=== PATIENT | female | born 1980 | race Caucasian/White ===

== ENCOUNTER 2023-06-03 13:52 | Outpatient (CLI) | payer OTHER, SELFPAY | END 2023-06-03 13:53 | disposition home or self-care (01) | PROVIDERS: PCP Obstetrics & Gynecology; Visit Provider Obstetrics & Gynecology | DX: N95.1 Menopausal and female climacteric states (principal); Z11.1 Encounter for screening for respiratory tuberculosis | CPT/HCPCS: 82670; 83001; 86480 ==

== ENCOUNTER 2023-07-01 10:04 | Outpatient (CLI) | payer OTHER, SELFPAY | END 2023-07-01 10:05 | disposition home or self-care (01) | PROVIDERS: PCP Obstetrics & Gynecology; Visit Provider Family Medicine | DX: Z00.00 Encounter for general adult medical examination without abnormal findings (principal); F90.9 Attention-deficit hyperactivity disorder, unspecified type; Z13.6 Encounter for screening for cardiovascular disorders | CPT/HCPCS: 80053; 80061 ==

== ENCOUNTER 2024-09-27 07:29 | Outpatient (CLI) | payer OTHER, SELFPAY ==
--- OUTSIDE RECORDS SUMMARY | 2024-09-27 07:36 | XMS_ITS | Clinical Summary ---
Author Organization [facility] Address [address] [place] [address] Care Team Providers Care Motor And Generator Brush Cutter Name Role Phone Bhavik Ferrara MD Primary Care Provider [phone] Isadora Meeks MD Unavailable [phone] Allergies Active Allergy Reactions Criticality Noted Date Comments Sulfamethoxazole-Trimeth oprim Other High 08/08/2015 Skin falls off per Pt Dry peeling skin, generalized not feeling well Medications Medication Sig Dispensed Refills Start Date End Date Status ALPRAZolam (XANAX) 0.25 mg oral tablet TAKE 1 TABLET BY MOUTH AT ONSET OF MIGRAINE ALONG WITH MIGRAINE MEDICATION 6 tablet 05/12/2022 Active ALPRAZolam (XANAX) 0.25 mg oral tablet TAKE 1 TABLET BY MOUTH NEEDED 6 tablet 1 07/28/2023 Active cycloSPORINE (RESTASIS MULTIDOSE) 0.05 % Opht Drop 1 drop every 12 (twelve) hours. 11/20/2022 Active dextroamphetamine-a mphetamine (ADDERALL XR) 10 mg oral extended release capsule 24 HR Take 1 capsule (10 mg) by mouth every morning. 07/06/2023 Active estradioL (VIVELLE-DOT) 0.0375 mg/24 hr TD SEMIweekly patch APPLY 1 PATCH FOR 3 DAYS ALTERNATING WITH 1 PATCH FOR 4 DAYS EACH WEEK FOR 3 WEEKS PER 4 WEEK CYCLE 06/13/2023 Active etonogestreL-ethiny l estradioL (NUVRARING) 0.12-0.015 mg/24 hr Vagl Insert vaginally once per month. 08/27/2022 Active predniSONE (DELTASONE) 10 mg oral tablet 40 mg by mouth every morning with breakfast for 5 days, , then 20 mg every morning for 3 days, then 10 mg every morning x 2 days and stop. 28 tablet 08/14/2023 Active amoxicillin-pot clavulanate (AUGMENTIN) 875-125 mg oral tablet Take 1 tablet by mouth twice a day. 20 tablet 08/14/2023 Active rimegepant (NURTEC ODT) 75 mg oral TbDL Dissolve 1 tablet in mouth as needed. 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 08/27/2022 Overview (07/29/2023): For endometriosis Migraine without aura, intra ctable, without status migrainosus 02/19/2019 Tension-type headache, unspecified, not intracta ble 02/19/2019 Dysmenorrhea 05/04/2012 Anxiety state 04/09/2010 Migraine headache 04/09/2010 Moderate dysplasia of cervix 09/21/2007 Endometriosis 07/07/2006 Immunizations Name Administration Dates Next Due Influenza recombinant (FluBl ok Quadrivalent PF) 08/03/2021,08/27/2020,08/21/2020,2018,11/01/2018,10/28/2017,08/22/2014 Social History Tobacco Use Types Packs/Day Years Used Date Smoking Tobacco: Never Smokeless Tobacco: Never Tobacco Cessation:Counseling Given: No Sex and Gender Information Value Date Recorded Sex Assigned at Not on file Gender Identity Not on file Sexual Orientation Not on file Plan of Treatment Health Maintenance Due Date Last Done Comments Hepatitis C Screening 1982 Lipid Screening 1982 Pap Smear 1982 Anxiety Follow-Up (THERESE-7) 1983 Depression Assessment (PHQ-2) 1983 Mammogram Screening 12/24/2022 12/24/2020 Adult Tetanus Booster 05/06/2023 05/06/2013 , 04/09/2010, 03/25/1997, Additional history exists COVID-19 Vaccine ( season) 2024 02/20/2021, 01/31/2021 Influenza Vaccine (#1) 2024 , 08/27/2020, 08/21/2020, Additional history exists RSV Vaccines (1 - 1-dose 75+ series) 2057 Pneumococcal <65 Aged Out No longer e ligible based on patient's age to complete this topic Insurance Payer Benefit Plan / Group Subscriber ID Effect mansoor Dates Phone Address Type [facility] [facility] [id number] 05/23/2021-Leif nt [address] [place] [phone] PPO Care Teams Motor And Generator Brush Cutter Relationship Specialty Start Date End Date Bhavik Ferrara MD [address] [facility] [address] [place] [address] PCP - General Rheumatology 12/18/21 Isadora Meeks MD [address] [facility] [address] [place] [id number] Neurology 12/18/21
--- OUTSIDE RECORDS SUMMARY | 2024-09-27 07:36 | XMS_ITS | Referral Summary ---
Author Organization [facility] Address [address] [place] [address] Care Team Providers Care Lipcoat Sprayer Name Role Phone Bhavik Ferrara MD Primary Care Provider [phone] Isadora Meeks MD Unavailable [phone] Allergies Active Allergy Reactions Criticality Noted [...] Orientation Not on file Plan of Treatment Not on file Insurance Payer Benefit Plan / Group Subscriber ID Effect mansoor Dates Phone Address Type [employer] [facility] [employer] Card [id number] 05/23/2021-Prese nt [address] [place] [phone] PPO Care Teams Lipcoat Sprayer Relationship Specialty Start Date End Date Bhavik Ferrara MD [address] [facility] [place] [address] PCP - General Rheumatology 12/18/21 Isadora Meeks MD [address] [facility] [address] [place] [address] Neurology 12/18/21
--- OUTSIDE RECORDS SUMMARY | 2024-09-27 07:37 | XMS_ITS | Clinical Summary ---
[facility] Address [address] [place] [address] Care Team Providers Care Certified Alcohol And Drug Counselor Name Role Phone Gracie Colón MD Primary Care Provider [phone] Source Comments You are receiving this document as you are listed as the primary care provider,follow-up provider, or the patient has been referred to you for consultation.This is in compliance with the Medicare andOhio[facility] Hospitalcaid EHR Incentive Program,which states Providers who transition their patient to another setting of careor provider of care or refers their patient to another provider of care shouldprovide summary care record for each transition of care or referral. [employer] Allergies Active Allergy Reactions Criticality Noted Date Comments Hydrocodone-Acetaminop hen Nausea 05/11/2007 Ondansetron Itching Medium 06/23/2012 Sulfamethoxazole-Trime thoprim Other, see comments High 08/08/2015 Skin falls off per Pt Dry peeling skin, generalized not feeling well Medications Medication Sig Dispensed Refills Start Date End Date Status NAPROXEN (NAPROSYN) 250MG ORAL TABS 0 05/03/2004 Active ALPRAZolam (XANAX) 0.25 MG tablet TK 1 T PO ALONG WITH MIGRAINE MEDICATION AT THE ONSET OF A MIGRAINE 08/03/2020 Active NURTEC 75 MG TBDP 03/19/2021 Active MAGNESIUM OR Take 1,600 mg by mouth daily at bedtime. Active etonogestrel-ethinyl estradiol (NUVARING) 0.12-0.015 MG/24HR vaginal ring Insert vaginally once per month. 12 Each 3 08/27/2022 Active RESTASIS MULTIDOSE 0.05 % eye drop emulsion 1 Drop every 12 hours. 11/20/2022 Active TRI-CHRIS 0.01-4-0.05 % cream Apply topically daily at bedtime. 10/14/2022 Active spironolactone (ALDACTONE) 50 MG tablet Take 1 Tablet (50 mg) by mouth two times a day. 10/11/2022 Active tretinoin (RETIN-A) 0.025 % cream Apply topically. 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 08/27/2022 Overview (08/27/2022): For endometriosis Immunizations Name Administration Dates Next Due 4vHPV (Gardasil) 07/12/2008,04/14/2008, 8 Flu Vac (3+ yrs) 08/08/2013, 3,09/21/2007, 005,10/03/1999,10/25/1997,10/07/1995 HepA Ped/Adol (1-18 yrs) 05/22/1998,05/24/1997,0 04/24/1997 HepB Ped/Adol (0-18 yrs) 02/03/1997,09/07/1996,0 06/20/1996 Influenza (Flucelvax), Prese rv Free QIV 10/20/2023,09/23/2022 Influenza IIV4 (Quadrivalent ) 0.5mL ([id number]) 08/03/2021,08/21/2020,09/12/2019, 018,10/28/2017,08/22/2014 MMR 03/04/1995,09/04/1983 Pfizer Monovalent 12+ Purple Top 02/20/2021,01/21 TB Test - Historical 11/27/2016,07/25/20 14,08/08/2013, 006 Td 03/25/1997,01/23/1997 Tdap 05/28/2023,05/06/2013,04/09/2010 Family History Medical History Relation Name Comments Cancer Father non hodgkins ly mphoma Cancer, Other Father Coronary Artery Disease Father Diabetes Father Diabetes, Type II Father Coronary Artery Disease Mother Diabetes Mother Diabetes, Type II Mother Hypertension Mother Cancer, Breast Negative Family History Cancer, Colon Negative Family History Cancer, Ovary Negative Family History Stroke Negative Family History Relation Name Status Comments Father Alive bladder cancer Mother Alive Brother 1 Brother 2 Alive Brother 3 Alive Brother 4 Alive Social History Tobacco Use Types Packs/Day Years Used Date Smoking Tobacco: Former Smokeless Tobacco: Never Alcohol Use Standard Drinks/Week Comments Yes 3 (1 standard drink = 0.6 oz pur e alcohol) very limited PHQ-2 Answer Date Recorded PHQ-2 Score 0 11/13/2022 Sex and Gender Information Value Date Recorded Sex Assigned at Not on file Gender Identity Not on file Sexual Orientation Not on file Last Filed Vital Signs Vital Sign Reading Time Taken Comments Blood Pressure 119/76 10/20/2023 8:21 AM CIRCULAR SAW OPERATOR Pulse 70 10/20/2023 8:21 AM CIRCULAR SAW OPERATOR Temperature 36.3 ??C (97.4 ??F) 10/20/2023 8:21 AM CS T Respiratory Rate 16 10/20/2023 8:21 AM CIRCULAR SAW OPERATOR Oxygen Saturation 98% 01/01/2023 3:21 PM CIRCULAR SAW OPERATOR Inhaled Oxygen Concentration - - Weight 65.4 kg (144 lb 3.2 oz) 10/20/2023 8:21 A M CIRCULAR SAW OPERATOR Height 161 cm (5' 3.39) 10/20/2023 8:21 AM CIRCULAR SAW OPERATOR Body Mass Index 25.23 10/20/2023 8:21 AM CIRCULAR SAW OPERATOR Plan of Treatment Health Maintenance Due Date Last Done Comments Hep C Screening (Preventive Services) 1982 HIV Screening (Preventive Services) 1998 Mammogram 12/24/2021 12/24/2020 Cervical Cancer Screening 07/10/20242020, 04/09/2016 (Completed) COVID-19 Vaccine ( season) 2024 02/20/2021, 01/31/2021 Influenza (#1) 2024 10/20/2023, 1111/2021, 08/03/2021, Additional history exists Adult Preventive Visit 08/27/2024 08/27/2022, 2019 Diabetes Screening- (based on age and BMI) 10/20/2026 10/20/2023, 07/10/2021, 12/27/2020 Zoster/Shingles (1 of 2) 2032 Colonoscopy 08/27/2032 08/27/2022 DTaP/Tdap/Td (6 - Tdap) 05/28/2033 05/28/20 23, 05/06/2013, 04/09/2010, Additional history exists HepB Completed 02/03/1997, 08/23, 06/20/1996 HepA Completed 05/22/1998, 12/1996, 04/24/1997 HPV Vaccine Completed 07/12/2008, 03/24, 01/20/2008 Hib Aged Out No longer eligi ble based on patient's age to complete this topic IPV (Polio) Aged Out No longer eligi ble based on patient's age to complete this topic Infant RSV Aged Out No longer eligi ble based on patient's age to complete this topic MCV4 Aged Out No longer eligi ble based on patient's age to complete this topic Pneumococcal Aged Out No longer eligi ble based on patient's age to complete this topic Procedures Procedure Name Priority Date/Time Associated Diagnosis Comments COLONOSCOPY Routine 08/27/2022 2:24 PM CDT Screen for colon cancer HGB A1C Routine 07/10/2021 9:04 AM CDT Screening for endocrine, nutritional, metabolic and immunity disorder PAP TEST Routine 07/10/2021 8:52 AM CDT Screening for vaginal cancer MM MAMMOGRAM DIAG BILAT W 3D SREEDHAR Routine 12/24/2020 2:45 PM CIRCULAR SAW OPERATOR Breast lump from Last 3 Months or Most Recently Relevant to Health Maintenance Results * COLONOSCOPY [[id number]] (08/27/2022 2:24 PM CDT) 08/27/2022 2:24 PM CDT Narrative GI ([facility]) - 08/27/2022 3:02 PM CDT Instrument Name: 188 Indications: ? Abdominal pain, Patient has a history of increased ? constipation, bloating. Multiple prior abdominal ? surgeries foe endometriosis. Father with polyps. Providers: ? Esperanza High MD, Kalie Ordaz ? Tammi Cooley LPN Patient Profile: ? The bowel preparation used was Golytely Bowel Prep. Referring MD: ?Juliet Kong NP Medicines: ? Propofol per Anesthesia Complications: ? No immediate complications. Procedure: ? Pre-Anesthesia Assessment: ? - The risks and benefits of the procedure and the ? sedation options and risks were discussed with the ? patient. All questions were answered and informed ? consent was obtained. ? - Pre-procedure physical examination revealed no ? contraindications to sedation. ? - Airway Examination: normal oropharyngeal airway ? and neck mobility. ? - Mental Status Examination: normal. Airway ? Examination: normal oropharyngeal airway and neck ? mobility. Respiratory Examination: clear to ? auscultation. CV Examination: normal. Abdominal ? Examination: bowel sounds present, abdomen soft and ? non-tender, no masses or organomegaly noted. ? - ASA Grade Assessment: Per Anesthesia team. ? After I obtained informed consent, the scope was ? passed under direct vision. Prior to sedation, ? patient identity and procedure was reverified. ? Throughout the procedure, the patient's blood ? pressure, pulse, and oxygen saturations were ? monitored continuously. The [facility]-H190L was ? introduced through the anus and advanced to the ? terminal ileum. The colonoscopy was performed ? without difficulty. The patient tolerated the ? procedure well. The quality of the bowel ? preparation was good. Findings: ? The terminal ileum appeared normal. ? Internal hemorrhoids were found during retroflexion. The hemorrhoids ? were mild. ? The exam was otherwise without abnormality. Impression: ?- The examined portion of the ileum was normal. ? - Internal hemorrhoids. ? - The examination was otherwise normal. ? - No specimens collected. Recommendation: ?- Use fiber, for example Citrucel, Fibercon, Konsyl ? or Metamucil. ? - Return to referring physician as previously ? scheduled. ? - Repeat colonoscopy in 10 years for screening ? purposes. Procedure Code(s): ? --- Professional --- ? 53068, Colonoscopy, flexible; diagnostic, including ? collection of specimen(s) by brushing or washing, ? when performed (separate procedure) Diagnosis Code(s): ? --- Professional --- ? K64.8, Other hemorrhoids ? R10.9, Unspecified abdominal pain CPT copyright 2020 [employer]. All rights reserved. The codes documented in this report are preliminary and upon assistant oceanographer review may be revised to meet current compliance requirements. Attending Participation: Esperanza High MD 08/27/2022 3:02:10 PM This report has been signed electronically. Number of Addenda: 0 Note Initiated On: 08/27/2022 2:24 PM Procedure Note Esperanza High MD - 08/27/2022 Instrument Name: 188 Indications: Abdominal pain, Patient has a history of increased constipation, bloating. Multiple prior abdominal surgeries foe endometriosis. Father with polyps. Providers: Esperanza High MD, Aminata Dow, Kalie Whitley, Tammi Rowland LPN Patient Profile: The bowel preparation used was Golytely BowelPrep. Referring MD: Juliet Kong NP Medicines: Propofol per Anesthesia Complications: No immediate complications. Procedure: Pre-Anesthesia Assessment: - The risks and benefits of the procedure and the sedation options and risks were discussed with the patient. All questions were answered and informed consent was obtained. - Pre-procedure physical examination revealed no contraindications to sedation. - Airway Examination: normal oropharyngeal airway and neck mobility. - Mental Status Examination: normal. Airway Examination: normal oropharyngeal airway and neck mobility. Respiratory Examination: clear to auscultation. CV Examination: normal. Abdominal Examination: bowel sounds present, abdomen soft and non-tender, no masses or organomegaly noted. - ASA Grade Assessment: Per Anesthesia team. After I obtained informed consent, the scope was passed under direct vision. Prior to sedation, patient identity and procedure was reverified. Throughout the procedure, the patient's blood pressure, pulse, and oxygen saturations were monitored continuously. The PCF-H190L was introduced through the anus and advanced to the terminal ileum. The colonoscopy was performed without difficulty. The patient tolerated the procedure well. The quality of the bowel preparation was good. Findings: The terminal ileum appeared normal. Internal hemorrhoids were found during retroflexion. The hemorrhoids were mild. The exam was otherwise without abnormality. Impression: - The examined portion of the ileum was normal. - Internal hemorrhoids. - The examination was otherwise normal. - No specimens collected. Recommendation: - Use fiber, for example Citrucel, Fibercon, Konsyl or Metamucil. - Return to referring physician as previously scheduled. - Repeat colonoscopy in 10 years for screening purposes. Procedure Code(s): --- Professional --- 20070, Colonoscopy, flexible; diagnostic, including collection of specimen(s) by brushing or washing, when performed (separate procedure) Diagnosis Code(s): --- Professional --- K64.8, Other hemorrhoids R10.9, Unspecified abdominal pain CPT copyright 2020 [employer]. All rights reserved. The codes documented in this report are preliminary and upon assistant oceanographer review may be revised to meet current compliance requirements. Attending Participation: Esperanza Hgih MD 08/27/2022 3:02:10 PM This report has been signed electronically. Number of Addenda: 0 Note Initiated On: 08/27/2022 2:24 PM Esperanza High MD DIGESTIVE CARE Performing Organization Address City/[facility]/ZIP Co de Phone Number GI ([facility]) [place], [place] * Hgb A1C (07/10/2021 9:04 AM CDT) Hemoglobin A1C 5.4 <=5.6 % 07/10/2021 3:00 PM CDT [facility] Blood Venipuncture / Unknown 07/10/2021 9:04 AM CDT 07/10/2021 9:04 AM CDT Autumn Patiño APRN, CNP LAB_1 Performing Organization Address City/[facility] Co de Phone Number [facility] [address] [id number], [facility] [phone] * PAP Test (07/10/2021 8:52 AM CDT) Case Report Pap ? Case: [id number] ? Authorizing Provider: ??Autumn Patiño, MARIAH, ADDIE Collected: ? 07/10/2021 0852 ? Ordering Location: ? [facility] ?? Received: ?07/10/2021 0913 ? First Screen: ?Wendy Parra CT (ASCP) ? Specimen: ?Pap Test, Routine, Vaginal Vault ? 07/23/2021 5:40 PM [facility] Pap Specimen Adequacy Satisfactory for evaluation, endocervical/cook sformation zone component absent. 07/23/2021 5:40 PM [facility] Pap Interpretation Negative for intraepithelial lesion or malignancy (NILM). 07/23/2021 5:40 PM [facility] Pap Disclaimer The Pap test is a screening test designed to aid in the detection of cervical cancer and its precursor lesions. It is not a diagnostic procedure and should not be used as the sole means of detecting cervical cancer. Both false-positive and false-negative results may occur. 07/23/2021 5:40 PM [facility] Gross Description The specimen is received in SurePath fixative and properly labeled. 1 Pap-stained SurePath slide is prepared. 07/23/2021 5:40 PM [facility] Embedded Images 5:40 PM [facility] Other Specimen Type STRUCTURE OF VAGINAL VAULT / Unknown 07/10/2021 8:52 AM CDT 07/10/2021 9:13 AM CDT Comment:LMP: No LMP recorded . Patient has had a hysterectomy. Autumn Patiño ADDIE [place] [address], [facility] [phone] * (ABNORMAL) MM Mammogram Diag Bilat W 3D Sreedhar (12/24/2020 2:45 PM CIRCULAR SAW OPERATOR) Anatomical Region Laterality Modality Breast Bilateral Mammography 12/24/2020 2:45 PM CIRCULAR SAW OPERATOR Narrative 12/24/2020 3:48 PM CIRCULAR SAW OPERATOR EXAM: MM MAMMOGRAM DIAG BILAT W 3D SREEDHAR, MM US BREAST RT LOCATION: [facility] DATE/TIME: 12/24/2020 2:45 PM INDICATION: Right breast painful lump for 1 week. COMPARISON: None; baseline imaging MAMMOGRAPHIC FINDINGS: Bilateral full-field digital diagnostic mammograms performed. The breasts are heterogeneously dense, which may obscure small masses. Images evaluated with the assistance of CAD. Breast tomosynthesis was used in interpretation. No focal or suspicious masses, microcalcifications, or areas architectural distortion are identified in either breast. The mass was not included on the mammographic views due to its far inferolateral location. ULTRASOUND FINDINGS: Targeted ultrasound of the right breast in the area of the palpable abnormality at 8:00 13 cm from the nipple demonstrates a 0.8 x 0.6 x 0.7 cm lymph node with borderline thickening of the cortex. There is maintenance of normal architecture. No other enlarged lymph nodes seen in the adjacent tissue or in the right axilla. IMPRESSION: The tender palpable lump in the right breast at 8:00 13 cm from the nipple corresponds to a lymph node with mild cortical thickening. Differential diagnosis includes reactive lymph node, lymphoma, and metastatic disease of occult primary, with reactive node favored. Patient will be scheduled for biopsy for one week from now and in the meantime will initiate NSAID therapy. If the lymph node has decreased in size by the time of biopsy, it will be canceled. ACR BI-RADS Category 4: Suspicious. I personally scanned and discussed the findings and recommendations with the patient at the conclusion of the examination. Procedure Note Lakshmi Tao MD - 12/24/2020 EXAM: MM MAMMOGRAM DIAG BILAT W 3D SREEDHAR, MM US BREAST RT LOCATION: [facility] DATE/TIME: 12/24/2020 2:45 PM INDICATION: Right breast painful lump for 1 week. COMPARISON: None; baseline imaging MAMMOGRAPHIC FINDINGS: Bilateral full-field digital diagnostic mammogramsperformed. The breasts are heterogeneously dense, which may obscure smallmasses. Images evaluated with the assistance of CAD. Breast tomosynthesiswas used in interpretation. No focal or suspicious masses,microcalcifications, or areas architectural distortion are identified ineither breast. The mass was not included on the mammographic views due toits far inferolateral location. ULTRASOUND FINDINGS: Targeted ultrasound of the right breast in the areaof the palpable abnormality at 8:00 13 cm from the nipple demonstrates a0.8 x 0.6 x 0.7 cm lymph node with borderline thickening of the cortex.There is maintenance of normal architecture. No other enlarged lymph nodesseen in the adjacent tissue or in the right axilla. IMPRESSION: The tender palpable lump in the right breast at 8:00 13 cm from the nipplecorresponds to a lymph node with mild cortical thickening. Differentialdiagnosis includes reactive lymph node, lymphoma, and metastatic diseaseof occult primary, with reactive node favored. Patient will be scheduledfor biopsy for one week from now and in the meantime will initiate NSAIDtherapy. If the lymph node has decreased in size by the time of biopsy, itwill be canceled. ACR BI-RADS Category 4: Suspicious. I personally scanned and discussed the findings and recommendations withthe patient at the conclusion of the examination. Gracie Colón MD RAD ANTONIO from Last 3 Months or Most Recently Relevant to Health Maintenance Care Teams Certified Alcohol And Drug Counselor Relationship Specialty Start Date End Date Gracie Colón MD [address] [place] [id number] PCP - General Family Practice 08/13/20
== END 2024-09-27 07:30 | disposition home or self-care (01) ==
PROVIDERS: PCP Family Medicine; Visit Provider Family Medicine
DX: Z00.00 Encounter for general adult medical examination without abnormal findings (principal); Z13.6 Encounter for screening for cardiovascular disorders; Z11.59 Encounter for screening for other viral diseases
CPT/HCPCS: 80053; 80061; 86803

== ENCOUNTER 2025-11-08 13:13 | Outpatient (CLI) | payer OTHER, SELFPAY | END 2025-11-08 13:14 | disposition home or self-care (01) | PROVIDERS: PCP Family Medicine; Visit Provider Family Medicine | DX: Z00.00 Encounter for general adult medical examination without abnormal findings (principal); Z90.710 Acquired absence of both cervix and uterus | CPT/HCPCS: 80053; 80061; 82306; 83001; 84443 ==